=== PATIENT | male | born 1960 | race Native Hawaiian/Other Pacific Islander ===

== ENCOUNTER 2020-03-13 10:12 | Inpatient (IN) | payer OTHER ==
[~2020-03-13] VITALS: Ht 167.6 cm; Wt 77.4 kg
[2020-03-13] VITALS (9 sets, daily range): BP systolic 126–149; BP diastolic 54–70; PULSE 88–100; TEMP 100.2–1003
[~2020-03-13 10:12] MED LIST: AVANDIA8 MG PO; COLCHICINE0.6 MG PO; FORTAMET1000 MG PO; GLUCOSAMINE/CHONDROI; LISINOPRIL5 MG PO; LOVAZA1 GM PO; STOOL SOFTENER100 MG PO
--- NOTE | 2020-03-13 12:07 | NUR ---
Patient arrived to room [address] Bourne notified. Dr Millan notified of consult.
[2020-03-13] MEDS ORDERED: NIZORAL CR 30GM TOP (12:10)
[2020-03-13] MEDS ORDERED: ULORIC40 MG PO (12:16)
[2020-03-13] MEDS ORDERED: ASPIRIN 81M81 MG/TA2 PO (12:17)
[2020-03-13] MEDS ORDERED: LANTUS100 U/ML SQ (12:18)
[2020-03-13] MEDS ORDERED: NOVOLOG 100U100 U/M1 SQ ×2 (12:19)
[2020-03-13] MEDS ORDERED: JANUVIA 100MG100 MG PO (12:20)
[2020-03-13] MEDS ORDERED: OMEGA-31 SGL PO (12:21)
[2020-03-13] MEDS ORDERED: LIPITOR 40MG TA40 MG PO (12:21)
[2020-03-13] MEDS ORDERED: NEURONTIN100 MG/CAP PO (12:22)
[2020-03-13] MEDS ORDERED: COZAAR100 MG PO (12:22)
[2020-03-13] MEDS ORDERED: VOLTAREN GEL 1%1 TU TP (12:23)
[2020-03-13] MEDS ORDERED: COLCRYS0.6 MG PO (12:23)
[2020-03-13] MEDS ORDERED: [UNRECOGNIZED DRUG - OTHER] TP (12:24)
[2020-03-13] MEDS ORDERED: TRIPLE ANTIBIOT TP (12:25)
[2020-03-13] MEDS ORDERED: FLUOCINOLONE ACE1 TU TP (12:26)
--- NOTE | 2020-03-13 12:35 | NUR ---
Dr Bourne here to see patient.
--- NOTE | 2020-03-13 12:59 | NUR ---
Dr Abreu notified of consult.
--- NOTE | 2020-03-13 15:56 | NUR ---
Covid19 and Infectious Disease screen completed. Fever of 103 degrees noted on admission. Patient denies cough, however, staff has noted cough several times while in patient room. Patient admitted wearing a cloth mask, surgical mask provided to patient. Melissa with Infection Control notified. Dr Millan and Tayla notified of findings as well.
--- NOTE | 2020-03-13 16:14 | NUR ---
Patient to endo at this time.
--- NOTE | 2020-03-13 20:15 | NUR ---
Pt. laying in bed at this time. Pt. is A&OX3, assessment complete. IV to lt. ac patent, IV fluids infusing per orders. Pt. denies pain or other needs, call light within reach.
[2020-03-14] VITALS (13 sets, daily range): BP systolic 112–162; BP diastolic 55–79; PULSE 73–100; TEMP 98.2–102
[2020-03-14 06:31] LABS: BASO % 0.5 % (0.0-2.0); EOS # 0.2 (0.0-0.7); EOS % 3.9 % (0-4.0); GRAN # 4.3 (1.4-6.5); HEMATOCRIT 42.6 % (42.0-52.0); LYMPH # 0.5 (1.2-3.4); LYMPH % 9.1 % (20.0-51.0); MEAN CELL VOLUME 89 fl (80.0-100.0); MEAN CORPUSCULAR HEMOGLOBIN 31 pg (27.0-31.0); MEAN CORPUSCULAR HGB CONC 35 g/dl (33.0-37.0); MONO # 0.9 (0.1-0.6); MONO % 14.3 % (1.7-9.3); PLATELET COUNT 169 K/mm3 (130-400); RED BLOOD COUNT 4.79 M/mm3 (4.20-5.60); REDCELL DISTRIBUTION WIDTH-CV 12.8 % (11.5-14.5)
[2020-03-14 06:48] LABS: ALBUMIN 3.9 gm/dL (3.5-5.0); BILIRUBIN,TOTAL 6.3 mg/dL (0.0-1.0); CALCIUM 8.3 mg/dL (8.4-10.2); CREATININE, serum 1.41 (0.66-1.25); POTASSIUM 3.7 mmol/L (3.4-5.0); TOTAL PROTEIN 7.3 gm/dL (6.4-8.2)
--- NOTE | 2020-03-14 09:45 | NUR ---
Patient is going to surgery at this time. Consent signed and on the chart.
--- NOTE | 2020-03-14 10:39 | NUR ---
SW attempted to meet with the patient to complete initial intake, the patient was out of the room. Will attempt at a later time.
--- NOTE | 2020-03-14 11:45 | NUR ---
Patient is back from surgery. Denies pain and nausea. Explained post-op orders. No other changes at this time. Call light within reach. Vital signs stable.
--- NOTE | 2020-03-14 14:02 | NUR ---
AUSTIN met with the patient to complete initial intake. The patient lives in [place] with his . The patient has a cane, crutches and a CPAP machine. CPAP supplied provided by the [facility]. The patient receives medical care and medications from [facility]. The patient does not have advanced directives and was not interested in a DPOA-HC form. The patient plans to return home at discharge. There are no additional needs at this time.
--- NOTE | 2020-03-14 18:30 | NUR ---
Patient has been doing well this afternoon. He has been resting most of the time. Most of the day he did not want to take insulin until his glucose was above 200. He stated it was because he was not eating. No other changes at this time. Call light within reach. Insulin given with supper.
--- NOTE | 2020-03-14 21:00 | NUR ---
Pt. sitting up in bed at this time. Pt. is A&OX3, assessment complete. IV to Lt. ac patent, IV fluids infusing per orders. Pt. reports pain at a 3 on pain scale this evening, Will give motrin per orders. Abd. lap sites x3, CDI with bandaids. Pt. denies further needs, call light within reach.
[2020-03-15 05:59] VITALS: BP 120/63; PULSE 74; TEMP 98.2
[2020-03-15 06:15] LABS: BASO % 0.2 % (0.0-2.0); EOS % 0.1 % (0-4.0); GRAN # 6.3 (1.4-6.5); GRAN % 75.9 % (42.2-75.2); HEMATOCRIT 39.3 % (42.0-52.0); HEMOGLOBIN 13.5 g/dl (13.5-18.0); LYMPH # 0.9 (1.2-3.4); MEAN CELL VOLUME 87 fl (80.0-100.0); MEAN CORPUSCULAR HEMOGLOBIN 30 pg (27.0-31.0); MEAN CORPUSCULAR HGB CONC 34 g/dl (33.0-37.0); MEAN PLATELET VOLUME 9.1 fl (7.4-10.4); MONO % 12.4 % (1.7-9.3); PLATELET COUNT 158 K/mm3 (130-400); REDCELL DISTRIBUTION WIDTH-CV 12.6 % (11.5-14.5)
[2020-03-15 06:20] LABS: ALBUMIN 3.4 gm/dL (3.5-5.0); BILIRUBIN,TOTAL 4.7 mg/dL (0.0-1.0); CREATININE, serum 1.27 (0.66-1.25); TOTAL PROTEIN 6.6 gm/dL (6.4-8.2)
[2020-03-15 08:00] VITALS: BP 127/64; PULSE 75; TEMP 97.6
--- NOTE | 2020-03-15 08:00 | NUR ---
Patient resting in bed at this time. Patient rouses easily and is alert and oriented while awake. IVF continue per order. Patient denies pain or needs at this time, call light within reach.
[2020-03-15] MEDS ORDERED: CIPRO 500MG TA500 MG PO (11:25)
[2020-03-15] MEDS ORDERED: FLAGYL500 MG PO (11:26)
--- NOTE | 2020-03-15 12:32 | NUR ---
First visit from the electric clock mechanic. No needs right now.
--- NOTE | 2020-03-15 13:00 | NUR ---
Discharge teaching completed. Discussed making follow up appointment with PCP, what complications to call surgical associate office. Patient verbalized understanding. IV removed, catheter intact, hemostasis achieved. Patient denies pain or further needs at this time. Patient escorted to ED entrance, where he entered a private vehicle.
== END 2020-03-15 13:00 | disposition home or self-care (01) | DRG 853 ==
LOC: MEDICAL 10:12 → SURG 11:50
PROVIDERS: Nurse Practitioner Family; ADMIT Surgery
PROC: 0FJD8ZZ Inspection of Pancreatic Duct, Via Natural or Artificial Opening Endoscopic (ICD-10-PCS; 2020-03-13)
PROC: BF11YZZ Fluoroscopy of Biliary and Pancreatic Ducts using Other Contrast (ICD-10-PCS; 2020-03-13)
PROC: BF11YZZ Fluoroscopy of Biliary and Pancreatic Ducts using Other Contrast (ICD-10-PCS; 2020-03-14)
PROC: 0FT44ZZ Resection of Gallbladder, Percutaneous Endoscopic Approach (ICD-10-PCS; principal; 2020-03-14 10:00)
DX: A41.9 Sepsis, unspecified organism (principal); K85.90 Acute pancreatitis without necrosis or infection, unspecified; K85.10 Biliary acute pancreatitis without necrosis or infection; K81.9 Cholecystitis, unspecified; R10.9 Unspecified abdominal pain; E11.42 Type 2 diabetes mellitus with diabetic polyneuropathy; E11.22 Type 2 diabetes mellitus with diabetic chronic kidney disease; I12.9 Hypertensive chronic kidney disease with stage 1 through stage 4 chronic kidney disease, or unspecified chronic kidney disease; M10.9 Gout, unspecified; N18.9 Chronic kidney disease, unspecified; E78.5 Hyperlipidemia, unspecified; Z79.4 Long term (current) use of insulin; Z79.82 Long term (current) use of aspirin; Z88.0 Allergy status to penicillin
CPT/HCPCS: 99223; 99231-AI; 99232-AI; C1769; J0744; J1100; J1650; J1815; J2405; J2704; J3010; J7030; Q9967